=== PATIENT | female | born 1935 | race Caucasian/White ===

== ENCOUNTER 2023-02-20 13:57 | Inpatient (IN) | payer OTHER ==
[2023-02-20 14:17] VITALS: BMI 21.6
[2023-02-20 16:38] LABS: BASO % 0.5 % (0-2.0); EOS % 0.7 % (0-4.5); HEMATOCRIT 40.2 % (32.4-45.2); HEMOGLOBIN 13.3 GM/dL (10.7-15.3); LYMPH % 23.1 % (8-40); MCH 29.3 pg (25.7-33.7); MCHC 32.9 g/dl (32.0-36.0); MEAN CELL VOLUME 88.9 fl (80-96); MEAN PLT VOLUME 9.8 fl (7.5-11.1); MONO % 9.6 % (3.8-10.2); NEUT % 66.1 % (42.8-82.8); PLATELET COUNT 288 10^3/uL (134-434); RBC 4.53 M/mm3 (3.60-5.2); RDW 13.5 % (11.6-15.6); WHITE BLOOD COUNT 13.4 K/mm3 (4.0-10.0)
[2023-02-20 16:48] LABS: INR 1.02 (0.83-1.09); PROTHROMBIN TIME (PATIENT) 11.8 SEC (9.7-13.0)
[2023-02-20 16:51] LABS: ACTIVATED PTT 30.1 SECONDS (25.2-36.5)
[2023-02-20 17:17] LABS: BLOOD UREA NITROGEN 12.2 mg/dL (7-18)
[2023-02-20 17:18] LABS: ALBUMIN 3.4 g/dl (3.4-5.0)
[2023-02-20 17:21] LABS: CREATININE 0.7 mg/dL (0.55-1.3)
[2023-02-20 17:22] LABS: BILIRUBIN,TOTAL 0.4 mg/dL (0.2-1); TOT PROT 7.4 g/dl (6.4-8.2)
[2023-02-20] MEDS ORDERED: SODIUM CHLORIDE 1,000 ML IV SCH (21:15)
[2023-02-20] MEDS ORDERED: ATORVASTATIN CA 40 MG TABLET (FP) ONE (21:40)
[2023-02-20] MEDS ORDERED: levETIRAcetam 500 MG TABLET (FP) PO ONE (21:40)
[2023-02-20] MEDS ORDERED: ATORVASTATIN CA 40 MG TABLET (FP) PO SCH (22:00)
[2023-02-20] MEDS: INSULIN SLIDING SCALE (NOVOLOG) 1 VIAL SQ SCH (22:05)
[2023-02-20] MEDS: levETIRAcetam 500 MG TABLET (FP) PO SCH (22:05)
[2023-02-20 22:35] LABS: EPI CELLS 10 /uL (0-25.1); HYALINE CASTS 0 /uL (0-3.1); URINE APPEARANCE CLEAR; URINE BACTERIA 116 /uL (0-1359); URINE BILIRUBIN NEGATIVE (NEGATIVE); URINE COLOR YELLOW; URINE GLUCOSE (UA) NEGATIVE (NEGATIVE); URINE KETONE NEGATIVE (NEGATIVE); URINE LEUK ESTERASE 1+ (NEGATIVE); URINE NITRITE NEGATIVE (NEGATIVE); URINE PROTEIN NEGATIVE (NEGATIVE); URINE RBC 11 /uL (0-23.9); URINE UROBILINOGEN 0.2 mg/dL (0.2-1.0); URINE WBC 57 /uL (0-25.8)
[2023-02-21] MEDS ORDERED: IOHEXOL 300 MG/ML INFUS..BTL IV ONE
[2023-02-21] MEDS ORDERED: CEFUROXIME AXETIL 500 MG TABLET PO SCH (04:53)
[2023-02-21 07:14] LABS: CALCIUM 8.8 mg/dL (8.5-10.1)
[2023-02-21 07:15] LABS: ALBUMIN 3.3 g/dl (3.4-5.0); BLOOD UREA NITROGEN 9.8 mg/dL (7-18); MAGNESIUM 1.9 mg/dL (1.8-2.4)
[2023-02-21 07:17] LABS: BASO % 0.5 % (0-2.0); EOS % 1.1 % (0-4.5); HEMATOCRIT 39.4 % (32.4-45.2); HEMOGLOBIN 13.5 GM/dL (10.7-15.3); LYMPH % 28.4 % (8-40); MCH 30.3 pg (25.7-33.7); MCHC 34.2 g/dl (32.0-36.0); MEAN CELL VOLUME 88.6 fl (80-96); MEAN PLT VOLUME 9.2 fl (7.5-11.1); MONO % 10.5 % (3.8-10.2); NEUT % 59.5 % (42.8-82.8); PLATELET COUNT 270 10^3/uL (134-434); RBC 4.45 M/mm3 (3.60-5.2); RDW 13.4 % (11.6-15.6); WHITE BLOOD COUNT 10.5 K/mm3 (4.0-10.0)
[2023-02-21 07:18] LABS: CREATININE 0.6 mg/dL (0.55-1.3); PHOSPHOROUS 2.7 mg/dL (2.5-4.9)
[2023-02-21 07:20] LABS: BILIRUBIN,TOTAL 0.7 mg/dL (0.2-1)
[2023-02-21] MEDS ORDERED: MAGNESIUM SULF 50% (8.12 MEQ/2 ML-1 GM VIAL) IVPB ONE (08:28)
[2023-02-21] MEDS ORDERED: ATROPINE SULFATE 1 MG/10 ML DISP.SYRIN ONE (08:28)
[2023-02-21] MEDS ORDERED: levETIRAcetam 500 MG TABLET (FP) PO ONE (08:46)
[2023-02-21] MEDS ORDERED: LEVOTHYROXINE NA 25 MCG TABLET (FP) ONE (08:46)
[2023-02-21] MEDS ORDERED: MAGNESIUM SULFATE IN WATER 2 GM/50 ML IVPB IVPB ONE (08:47)
[2023-02-21] MEDS ORDERED: KCL 10 MEQ IVPB 30 MEQ/300 ML INFUS.BAG IVPB ONE (08:47)
[2023-02-21] MEDS: LEVOTHYROXINE NA 25 MCG TABLET (FP) PO SCH ×2 (09:02)
[2023-02-21] MEDS: KCL 10 MEQ IVPB 10 MEQ/100 ML INFUS.BAG IVPB SCH ×2 (09:03→10:17)
[2023-02-21] MEDS: levETIRAcetam 500 MG TABLET (FP) PO SCH ×2 (09:03→21:48)
[2023-02-21] MEDS: INSULIN SLIDING SCALE (NOVOLOG) 1 VIAL SQ SCH ×3 (09:05→21:59)
[2023-02-21] MEDS ORDERED: CEFTRIAXONE 1 GM in DEXTROSE 5%-WATER - 50 ML IVPB SCH (10:00)
[2023-02-21] MEDS ORDERED: LEVOTHYROXINE NA 25 MCG TABLET (FP) PO SCH (10:09)
[2023-02-21] MEDS ORDERED: CEFTRIAXONE 1 GM/50 ML BAG ONE (10:26)
[2023-02-21] MEDS ORDERED: LIDOCAINE HCL 1%, 10 MG/ML (10ML VIAL) MDV ONE (11:14)
[2023-02-21] MEDS ORDERED: DEXMEDETOMIDINE HCL 200 MCG/2 ML IVPB ONE (12:21)
[2023-02-21] MEDS ORDERED: LIDOCAINE HCL/PF 2% SDV 5ML VIAL ONE (12:24)
[2023-02-21] MEDS ORDERED: MIDAZOLAM HCL 2 MG/2 ML SINGLE DOSE VIAL ONE (12:24)
[2023-02-21] MEDS ORDERED: PROPOFOL 20 ML ONE ×2 (12:24→13:28)
[2023-02-21] MEDS ORDERED: ceFAZolin SODIUM 1 GM VIAL ONE (12:54)
[2023-02-21] MEDS ORDERED: ceFAZolin SODIUM 1 GM VIAL IVPB ONE ×2 (12:55)
[2023-02-21] MEDS ORDERED: LIDOCAINE 1% P/F 10 MG/ML VIAL PNB ONE ×2 (13:40)
[2023-02-21] MEDS ORDERED: GENTAMICIN SO4 80 MG/2 ML VIAL ONE (13:55)
[2023-02-21] MEDS ORDERED: GENTAMICIN SO4 80 MG/2 ML VIAL IVPB ONE (13:56)
[2023-02-21] MEDS ORDERED: PROMETHAZINE HCL 25 MG/1 ML VIAL IVPB PRN (14:45)
[2023-02-21] MEDS ORDERED: LACTATED RINGERS SOLUTION 1,000 ML IV SCH (14:45)
[2023-02-21] MEDS ORDERED: ONDANSETRON 4 MG/2 ML VIAL IVPUSH PRN (14:45)
[2023-02-21] MEDS ORDERED: SODIUM CHLORIDE 1,000 ML IV SCH (14:55)
[2023-02-21] MEDS: NYSTATIN/TRIAMCINOLONE TOPICAL CREAM 15 GM TUBE TP SCH (21:48)
[2023-02-21] MEDS: ATORVASTATIN CA 40 MG TABLET (FP) PO SCH (21:48)
[2023-02-22] MEDS: INSULIN SLIDING SCALE (NOVOLOG) 1 VIAL SQ SCH ×5 (06:34→22:54)
[2023-02-22] MEDS: LEVOTHYROXINE NA 25 MCG TABLET (FP) PO SCH (06:44)
[2023-02-22 07:55] LABS: HEMATOCRIT 41.8 % (32.4-45.2); HEMOGLOBIN 14.2 GM/dL (10.7-15.3); MCH 30.1 pg (25.7-33.7); MCHC 33.9 g/dl (32.0-36.0); MEAN CELL VOLUME 88.7 fl (80-96); MEAN PLT VOLUME 10.1 fl (7.5-11.1); PLATELET COUNT 273 10^3/uL (134-434); RBC 4.71 M/mm3 (3.60-5.2); RDW 13.4 % (11.6-15.6); WHITE BLOOD COUNT 15.5 K/mm3 (4.0-10.0)
[2023-02-22 08:19] LABS: BLOOD UREA NITROGEN 9.9 mg/dL (7-18)
[2023-02-22 08:21] LABS: ALBUMIN 3.4 g/dl (3.4-5.0); CALCIUM 8.4 mg/dL (8.5-10.1); MAGNESIUM 2.3 mg/dL (1.8-2.4)
[2023-02-22 08:24] LABS: CREATININE 0.6 mg/dL (0.55-1.3)
[2023-02-22 08:25] LABS: PHOSPHOROUS 2.5 mg/dL (2.5-4.9)
[2023-02-22 08:26] LABS: TOT PROT 7.2 g/dl (6.4-8.2)
[2023-02-22 08:27] LABS: BILIRUBIN,TOTAL 0.9 mg/dL (0.2-1)
[2023-02-22] MEDS: levETIRAcetam 500 MG TABLET (FP) PO SCH ×2 (09:09→23:01)
[2023-02-22] MEDS: NYSTATIN/TRIAMCINOLONE TOPICAL CREAM 15 GM TUBE TP SCH ×3 (09:10→23:00)
[2023-02-22] MEDS ORDERED: CEFTRIAXONE 1 GM in DEXTROSE 5%-WATER - 50 ML IVPB SCH (10:00)
[2023-02-22] MEDS: ATORVASTATIN CA 40 MG TABLET (FP) PO SCH (23:01)
[2023-02-23] MEDS: LEVOTHYROXINE NA 25 MCG TABLET (FP) PO SCH (06:56)
[2023-02-23] MEDS: INSULIN SLIDING SCALE (NOVOLOG) 1 VIAL SQ SCH ×4 (07:01→21:28)
[2023-02-23 09:11] LABS: HEMATOCRIT 39.1 % (32.4-45.2); HEMOGLOBIN 13.2 GM/dL (10.7-15.3); MCH 29.8 pg (25.7-33.7); MCHC 33.7 g/dl (32.0-36.0); MEAN CELL VOLUME 88.4 fl (80-96); MEAN PLT VOLUME 10.1 fl (7.5-11.1); PLATELET COUNT 242 10^3/uL (134-434); RBC 4.42 M/mm3 (3.60-5.2); RDW 13.4 % (11.6-15.6); WHITE BLOOD COUNT 14.4 K/mm3 (4.0-10.0)
[2023-02-23 09:53] LABS: ALBUMIN 3.1 g/dl (3.4-5.0); BLOOD UREA NITROGEN 11.5 mg/dL (7-18); CALCIUM 8.2 mg/dL (8.5-10.1)
[2023-02-23 09:55] LABS: MAGNESIUM 2.1 mg/dL (1.8-2.4)
[2023-02-23 09:57] LABS: PHOSPHOROUS 2.4 mg/dL (2.5-4.9)
[2023-02-23 09:59] LABS: BILIRUBIN,TOTAL 0.9 mg/dL (0.2-1); TOT PROT 6.9 g/dl (6.4-8.2)
[2023-02-23 10:01] LABS: CREATININE 0.7 mg/dL (0.55-1.3)
[2023-02-23] MEDS: levETIRAcetam 500 MG TABLET (FP) PO SCH ×2 (10:03→21:28)
[2023-02-23] MEDS: NYSTATIN/TRIAMCINOLONE TOPICAL CREAM 15 GM TUBE TP SCH ×2 (10:04→21:28)
[2023-02-23] MEDS: DIGOXIN 0.125 MG TABLET PO SCH (12:44)
[2023-02-23] MEDS: ATORVASTATIN CA 40 MG TABLET (FP) PO SCH (21:28)
[2023-02-24] MEDS: LEVOTHYROXINE NA 25 MCG TABLET (FP) PO SCH (06:18)
[2023-02-24] MEDS: INSULIN SLIDING SCALE (NOVOLOG) 1 VIAL SQ SCH ×2 (06:18→11:53)
[2023-02-24] MEDS: DIGOXIN 0.125 MG TABLET PO SCH (09:36)
[2023-02-24] MEDS: NYSTATIN/TRIAMCINOLONE TOPICAL CREAM 15 GM TUBE TP SCH (09:36)
[2023-02-24] MEDS: levETIRAcetam 500 MG TABLET (FP) PO SCH (09:36)
[2023-02-24] MEDS ORDERED: NAPH,MB-DB/K PH,MBDB POWDER PACKET PO ONE (15:05)
[2023-02-24 16:16] VITALS: BP 122/78; RESP 20; TEMP 98.2
[2023-02-24 16:23] VITALS: PULSE 85
== END 2023-02-24 17:08 | disposition home or self-care (01) | DRG 244 ==
LOC: JER 13:57 → JERBED 17:31 → J4W 02-21 16:58
PROVIDERS: ADMIT Internal Medicine; ATTEND Internal Medicine
PROC: 02H60JZ Insertion of Pacemaker Lead into Right Atrium, Open Approach (ICD-10-PCS; 2023-02-21)
PROC: 0JH606Z Insertion of Pacemaker, Dual Chamber into Chest Subcutaneous Tissue and Fascia, Open Approach (ICD-10-PCS; principal; 2023-02-21 12:30)
DX: I49.5 Sick sinus syndrome (principal); I48.0 Paroxysmal atrial fibrillation; E78.5 Hyperlipidemia, unspecified; I10 Essential (primary) hypertension; E11.9 Type 2 diabetes mellitus without complications; I44.0 Atrioventricular block, first degree; E03.9 Hypothyroidism, unspecified; M81.0 Age-related osteoporosis without current pathological fracture; H91.93 Unspecified hearing loss, bilateral; G31.84 Mild cognitive impairment of uncertain or unknown etiology; Z95.2 Presence of prosthetic heart valve
CPT/HCPCS: 0241U-QW; 36415; 71045-TC-FY; 71046-TC-FY; 76000-TC-FY; 80053; 80061; 81003; 82962; 83036; 83735; 84100; 84443; 84484; 85025; 85027; 85610; 85730; 86850; 86900; 86901; 87086; 93005; 93010; 94010; 94760; 94761; 97116-GP; 97162-GP; 99285-25; C1769; C1785; C1898